=== PATIENT | male | born 1985 | race Caucasian/White ===

== ENCOUNTER 2021-06-27 08:22 | Emergency (ER) | payer OTHER ==
[2021-06-27 08:39] VITALS: BP 126/68
--- NOTE | 2021-06-27 08:41 | ED Physician Documentation ---
PD HPI LOWER EXT INJURY - Stated complaint Stated Complaint: RT FT INJ - Chief complaint Chief Complaint: Ext Problem - History obtained from History obtained from: Patient - History of Present Illness PD HPI LOW EXT INJURY LOCATION: Right, Foot Type of injury: Blunt / blow (he dropped generator on foot yesterday, with pain/swelling and bruising.) Where injury occurred: Home Timing - onset: Yesterday Timing - details: Abrupt onset Worsened by: Moving, Palpating Associated symptoms: Swelling, Discolored. No: Weakness, Numbness Similar symptoms before: Has not had sx before Review of Systems Constitutional: denies: Fever Nose: denies: Rhinorrhea / runny nose, Congestion Throat: denies: Sore throat Respiratory: denies: Cough Skin: denies: Abrasion (s), Laceration (s) Neurologic: denies: Focal weakness, Numbness PD PAST MEDICAL HISTORY - Past Medical History Past Medical History: No - Allergies Allergies/Adverse Reactions: Allergies Allergy/AdvReac Type Severity Reaction Status Date / Time Sulfa (Sulfonamide Allergy Hives Verified 06/27/21 08:39 Antibiotics) PD ED PE NORMAL - Vitals Vital signs reviewed: Yes - General General: Alert and oriented X 3, No acute distress, Well developed/nourished - Derm Derm: Normal color, Warm and dry - Extremities Extremities: Other (right foot dorsum across mid MTs with tenderness, swelling, some bruising. Normal rom of the great toe. Normal color and cap refill in the toes. Sensation and motor normal. ) - Neuro Neuro: No motor deficit, No sensory deficit Results - Vitals Vitals: Oxygen O2 Source Room air - Rads (name of study) right foot Radiology: Prelim report reviewed (no fractures), See rad report PD MEDICAL DECISION MAKING - ED course Complexity details: reviewed results, considered differential, d/w patient Departure - Departure Disposition: 01 Home, Self Care Clinical Impression: Foot contusion Qualifiers: Encounter type: initial encounter Laterality: right Qualified Code(s): S90.31XA - Contusion of right foot, initial encounter Condition: Stable Record reviewed to determine appropriate education?: Yes Instructions: ED Contusion Foot Comments: No fracture seen on your x-ray. It still going to be sore swollen and bruised for several days to a week or so. Progress activity as able. Firm soled shoe to reduce motion through the midfoot. Ice elevate and rested often today for swelling. Tylenol ibuprofen as needed for pains. Progress activity as tolerated. Discharge Date/Time: 06/27/21 10:07
--- NOTE | 2021-06-27 10:59 | XRAY Report ---
PROCEDURE: FOOT COMP MIN 3VW (RT) INDICATIONS: Generator fell onto right foot TECHNIQUE: 3 views of the foot were acquired. COMPARISON: None FINDINGS: Bones: No fractures or dislocations. No suspicious bony lesions. Soft tissues: No tibiotalar joint effusion. Achilles tendon appears normal. IMPRESSION: No displaced fractures are seen on this plain study. In this patient with a given history of trauma, please correlate with focal tenderness. If clinically appropriate, please consider a short-term follow-up plain films series versus a dedicated CT study. Note: Case discussed by telephone with Dr. Bradford on 9:14 AM on 06/27/2021. Reviewed by: Gene Garner MD on 06/27/2021 9:58 AM SCOT Approved by: Gene Garner MD on 06/27/2021 9:58 AM SCOT Station ID: [id number]
== END 2021-06-27 10:07 | disposition home or self-care (01) ==
LOC: ED 08:22
DX: S90.31XA Contusion of right foot, initial encounter (principal); W31.89XA Contact with other specified machinery, initial encounter
CPT/HCPCS: 99282; 99283